=== PATIENT | male | born 2000 | race African-American/Black ===

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

== ENCOUNTER 2019-06-24 08:49 | Emergency (ER) | payer OTHER, MEDICAID ==
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
[2019-06-24 12:59] VITALS: BP 118/69
== END 2019-06-24 13:01 | disposition home or self-care (01) ==
LOC: ER 08:49
DX: M25.522 Pain in left elbow (principal); M89.8X6 Other specified disorders of bone, lower leg; M89.8X5 Other specified disorders of bone, thigh; V23.9XXA Unspecified motorcycle rider injured in collision with car, pick-up truck or van in traffic accident, initial encounter; J45.909 Unspecified asthma, uncomplicated
CPT/HCPCS: 99283

== ENCOUNTER 2020-05-18 18:52 | Emergency (ER) | payer MEDICAID ==
[2020-05-18] MEDS ORDERED: AMOXICILLIN TR/POT CLAVULANATE 875-125 MG TAB PO ONE (19:34)
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
--- NOTE | 2020-05-18 20:19 | RADIOLOGY REPORT (SQ) ---
EXAM DESCRIPTION: XR FINGERS COMPLETED DATE/TME: 05/18/2020 19:35 CLINICAL HISTORY: 19 years Male Laceration right middle finger foreign body COMPARISON: None. TECHNIQUE: Right finger, three views FINDINGS: No acute fractures or dislocations are identified. No osseous destructive lesions. Overlying bandages or gauze somewhat limits evaluation for foreign objects. No obvious foreign object is identified. IMPRESSION: No definite foreign object noted
[2020-05-18] MEDS ORDERED: DIPH/PERTUSS(ACELL)/TETANUS VAC/PF 0.5 ML SYR (>=10YO) IM ONE (20:34)
[2020-05-18] MEDS ORDERED: LIDOCAINE 1%/EPINEPHRINE INJ 20 ML VIAL INJ ONE (20:34)
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
[2020-05-18 22:16] VITALS: BP 118/63
== END 2020-05-18 22:25 | disposition home or self-care (01) ==
LOC: ER 18:52
DX: S61.312A Laceration without foreign body of right middle finger with damage to nail, initial encounter (principal); Y04.0XXA Assault by unarmed brawl or fight, initial encounter; Z23 Encounter for immunization; F17.200 Nicotine dependence, unspecified, uncomplicated; F12.10 Cannabis abuse, uncomplicated; J45.909 Unspecified asthma, uncomplicated
CPT/HCPCS: 99283; 90471; 73140; 90715; 12001; J3490 ×2

== ENCOUNTER 2020-06-12 09:10 | Emergency (ER) | payer MEDICAID ==
[2020-06-12 09:16] VITALS: BP 123/71
[2020-06-12] MEDS ORDERED: CEPHALEXIN 500 MG CAPSULE PO ONE (10:19)
[2020-06-12] MEDS ORDERED: DOXYCYCLINE HYCLATE 100 MG TABLET PO ONE (10:19)
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
== END 2020-06-12 10:25 | disposition home or self-care (01) ==
LOC: ER 09:10
DX: S61.211A Laceration without foreign body of left index finger without damage to nail, initial encounter (principal); L03.012 Cellulitis of left finger; M79.89 Other specified soft tissue disorders; X58.XXXA Exposure to other specified factors, initial encounter; F17.200 Nicotine dependence, unspecified, uncomplicated; J45.909 Unspecified asthma, uncomplicated
CPT/HCPCS: 99283; J3490